=== PATIENT | male | born 1950 | race Caucasian/White ===

== ENCOUNTER → 2016-06-14 | Outpatient (CLI) | payer MEDICARE | END | disposition home or self-care (01) | LOC: GMAL 11:23 | PROVIDERS: ATTEND Family Medicine | DX: Z12.5 Encounter for screening for malignant neoplasm of prostate (principal); D51.3 Other dietary vitamin B12 deficiency anemia; E55.9 Vitamin D deficiency, unspecified; D64.9 Anemia, unspecified | CPT/HCPCS: 82306; 82607; 82728; 83540; 83550; G0103 ==

== ENCOUNTER → 2017-06-26 | Outpatient (CLI) | payer MEDICARE | LOC: GMAL 10:24 | PROVIDERS: ATTEND Family Medicine | DX: D51.3 Other dietary vitamin B12 deficiency anemia (principal); D53.9 Nutritional anemia, unspecified; E55.9 Vitamin D deficiency, unspecified; Z12.5 Encounter for screening for malignant neoplasm of prostate | CPT/HCPCS: 82306; 82607; 82728; 82746; 83540; 83550; G0103 ==

== ENCOUNTER 2017-08-13 20:17 | Emergency (ER) | payer MEDICARE, OTHER ==
[2017-08-13 20:35] VITALS: TEMP 99.6
[2017-08-13] MEDS ORDERED: ALUM & MAG HYDROX-SIMETHICONE 30 ML, LIDOCAINE VISCOUS 2% 15 ML PO ONE ×2 (20:36)
--- NOTE | 2017-08-13 20:39 | ED.PDOC ---
History of Present Illness - General Chief Complaint: Abdominal Pain Stated Complaint: upper abdominal pain Time Seen by Provider: 08/13/17 20:35 Information Source: patient Exam Limitations: no limitations - History of Present Illness Initial Comments: Patient comes in with sudden 10/10 sharp epigastric abdominal pain that started yesterday at 7 pm. she states the pain was associated with some dry heaving and nausea and felt like a hot poker was the middle of his abdomen. He had a similar episode that lasted only a couple of hours back in May after he was started on a new diabetes medication. However, he has not had any problems since. He did have a normal bowel movement today without blood or diarrhea. He 's had no fever but some chills last night. He denies any cough or cold symptoms. He has no chest pain or shortness of breath. Patient normally does not have reflux and he denies any having abdominal distention. He has not had recent trauma, change in activity, or travel. Nothing makes the pain better and nothing seems to make it worse. Abdominal Pain Onset Location: epigastric Pain Radiation: no radiation Quality: severe, burning, stabbing Timing/Duration: 7-24 hours Improving Factors: nothing Worsening Factors: nothing Associated Symptoms: nausea/vomiting Review of Systems - Review of Systems Constitutional: States: chills. Denies: fever EENTM: States: no symptoms reported. Denies: ear pain, nose pain, nose congestion, throat pain Respiratory: States: no symptoms reported. Denies: cough, orthopnea, short of breath, wheezing Cardiology: States: no symptoms reported. Denies: chest pain, palpitations, syncope Genitourinary: States: see HPI Musculoskeletal: States: no symptoms reported Skin: States: no symptoms reported Neurological: States: no symptoms reported Past Medical History (General) - Patient Medical History Hx Seizures: No Hx Stroke: No Hx Dementia: No Hx Asthma: No Hx of COPD: Yes Hx Cardiac Disorders: No Hx Congestive Heart Failure: No Hx Pacemaker: No Hx Hypertension: Yes Hx Thyroid Disease: No Hx Diabetes: Yes - NIDDN Hx Gastroesophageal Reflux: No Hx Renal Disease: No Hx of HIV: No Hx MRSA: No Surgical History: no surgical history - Vaccination History Hx Influenza Vaccination: Yes - Social History Hx Tobacco Use: Yes - 1 ppd - Triage Comment ED Triage Comment: intermittant burning to epigastric area. Family Medical History - Family History Mother Family History: Unknown Hx Family Cancer: Yes Physical Exam - Physical Exam General Appearance: Agitated, Obvious distress Eyes, Ears, Nose, Throat Exam: PERRL/EOMI, normal ENT inspection, TMs normal, pharynx normal Neck: non-tender, full range of motion, supple, normal inspection Respiratory: chest non-tender, lungs clear, normal breath sounds, no respiratory distress Cardiovascular/Chest: normal peripheral pulses, regular rate, rhythm, no edema, no gallop, no JVD, no murmur Peripheral Pulses: No deficit Gastrointestinal/Abdominal: soft, other - to palpation epigastrium with some voluntary guarding no rebound and no distention. Hypoactive bowel sounds in all 4 quadrants no masses Back Exam: no CVA tenderness Neurologic: alert, oriented x 3 Skin Exam: normal color Progress - Progress Progress: 08/13/17 21:29 Discussed results with patient and . Gallbladder wall thickening without signs of acute cholecystitis. Patient has no fever, normal WBC and no dilation noted of CBD. Patient understands appears to be billiary collic and further study and intervention may be needed including U/S and possible HIDA scan. 08/13/17 22:52 after IV Toradol and fluid pain is resolved. - Results/Orders Results/Orders: Patient Name: CRISTIAN CARRANZA Gender: Male Date of : 1950 Referring Physician: STEVE MAURICE Organization: [facility] Accession Number: [id number] Requested Date: August 13, 2017 20:36 Report Status: Final Requested Procedure: 1 Procedure Description: Abdoment/Pelvis w/o Contrast Modality: CT Findings Reporting MD: Josh Mirza Fellow MD: Not available Dictation Time: Point Of Care Technician: Not available In [employer] Date: EXAM DESCRIPTION: CT ABDOMEN AND PELVIS WITHOUT CONTRAST CLINICAL HISTORY: pain at epigastric area COMPARISON: None Available. TECHNIQUE: CT of the abdomen and pelvis without IV contrast. Evaluation of the solid organs and vasculature is suboptimal due to lack of IV contrast. DLP: 558.99 mGy-cm FINDINGS: Lung Bases: The visualized lung bases are clear. Bones: No destructive bone lesions identified. Degenerative change of the spine. Abdomen: Liver: The liver has normal size and density. Gallbladder: Wall thickening of the gallbladder without definite calcified gallstones identified. Spleen, Pancreas, and Adrenal Glands: The spleen, pancreas, and adrenal glands are unremarkable. Kidneys: The kidneys have normal size and contour without evidence of hydronephrosis. No obstructing ureteral calculi. Nonspecific bilateral perinephric fat stranding. Vasculature: Aortoiliac atherosclerosis. IVC is unremarkable. Stomach: The stomach and duodenum have normal course. Small duodenal diverticulum. Other: No free intraperitoneal air. No free fluid or lymphadenopathy. Pelvis: Bladder: Thickening of the urinary bladder. Bowel: No dilated loops of large or small bowel. Appendix: Normal appendix. Pelvis: Enlarged prostate. [facility] [address] [place] [address], [address] [place], [place] T [phone] F [phone] [email or web address] - Report exported on Aug 13, 2017 21:25:08 [id number] - Page 2 of 2 IMPRESSION: 1. Wall thickening of the gallbladder without gallstones identified. Right upper quadrant ultrasound may be helpful. 2. Wall thickening of the urinary bladder with enlargement of the prostate. This may be related to bladder outlet obstruction however other etiology not excluded. This exam was performed according to our departmental dose-optimization program, which includes automated exposure control, adjustment of the mA and/or kV according to patient size and/or use of iterative reconstruction technique. Departure - Departure Clinical Impression: Abdominal pain Qualifiers: Abdominal location: epigastric Qualified Code(s): R10.13 - Epigastric pain Disposition: Discharge to Home or Self Care Condition: Good Departure Forms: ED Discharge - Pt. Copy, Patient Portal Self Enrollment Instructions: DI for Abdominal Pain-Adult Diet: low fat, low cholesterol Referrals: Matthew Augustin III, MD [Primary Care Provider] - 1-2 Weeks Home Medications: Ambulatory Orders Ferrous Gluconate [Iron] 27 mg PO 08/13/17 Folic Acid 1 mg PO 08/13/17 Gabapentin 400 mg PO 08/13/17 Lisinopril 2.5 mg PO 08/13/17 Metoprolol Tartrate 25 mg PO 08/13/17 Omeprazole 20 mg PO 08/13/17 Simvastatin 80 mg PO 08/13/17 Sitagliptin-Metformin HCl [Janumet 50-1000 mg] 08/13/17 Tamsulosin HCl 0.4 mg PO 08/13/17 Terazosin HCl 5 mg PO 08/13/17 Trazodone HCl 50 mg PO 08/13/17 Venlafaxine HCl 75 mg PO 08/13/17 Additional Instructions: patient appears to have biliary colic with some thickening of the gallbladder wall. However, white blood cell count was normal and patient is afebrile. Pain was resolved with IV fluid and IV Toradol. Patient was informed upon results that he should follow-up with his PCP in 3-4 days to arrange ultrasound decide if further workup is necessary. Return to ER for worsening of pain, intractable emesis, even her greater than 100.5.
[2017-08-13] MEDS ORDERED: ALUM & MAG HYDROX-SIMETHICONE 30 ML UD ONE (20:41)
[2017-08-13] MEDS ORDERED: LIDOCAINE HCL 2% (MOUTH-THROAT) 15 ML UD ONE (20:41)
[2017-08-13] MEDS ORDERED: KETOROLAC TROMETHAMINE INJ 30 MG/ML VIAL IV ONE (21:19)
[2017-08-13] MEDS ORDERED: SODIUM CHLORIDE 0.9% 1000ML 1,000 ML IVS PRN (21:19)
--- NOTE | 2017-08-13 21:20 | CT ---
EXAM DESCRIPTION: CT ABDOMEN AND PELVIS WITHOUT CONTRAST CLINICAL HISTORY: pain at epigastric area COMPARISON: None Available. TECHNIQUE: CT of the abdomen and pelvis without IV contrast. Evaluation of the solid organs and vasculature is suboptimal due to lack of IV contrast. DLP: 558.99 mGy-cm FINDINGS: Lung Bases: The visualized lung bases are clear. Bones: No destructive bone lesions identified. Degenerative change of the spine. Abdomen: Liver: The liver has normal size and density. Gallbladder: Wall thickening of the gallbladder without definite calcified gallstones identified. Spleen, Pancreas, and Adrenal Glands: The spleen, pancreas, and adrenal glands are unremarkable. Kidneys: The kidneys have normal size and contour without evidence of hydronephrosis. No obstructing ureteral calculi. Nonspecific bilateral perinephric fat stranding. Vasculature: Aortoiliac atherosclerosis. IVC is unremarkable. Stomach: The stomach and duodenum have normal course. Small duodenal diverticulum. Other: No free intraperitoneal air. No free fluid or lymphadenopathy. Pelvis: Bladder: Thickening of the urinary bladder. Bowel: No dilated loops of large or small bowel. Appendix: Normal appendix. Pelvis: Enlarged prostate. IMPRESSION: 1. Wall thickening of the gallbladder without gallstones identified. Right upper quadrant ultrasound may be helpful. 2. Wall thickening of the urinary bladder with enlargement of the prostate. This may be related to bladder outlet obstruction however other etiology not excluded. This exam was performed according to our departmental dose-optimization program, which includes automated exposure control, adjustment of the mA and/or kV according to patient size and/or use of iterative reconstruction technique. Electronically signed by: Josh Mirza 08/13/2017 9:19 PM CDT
[2017-08-13 23:10] VITALS: O2SAT 99
[2017-08-13 23:11] VITALS: BP 140/67
== END 2017-08-13 23:11 | disposition home or self-care (01) ==
LOC: ER 20:17
DX: R10.13 Epigastric pain (principal); J44.9 Chronic obstructive pulmonary disease, unspecified; E11.9 Type 2 diabetes mellitus without complications; I10 Essential (primary) hypertension; Z87.891 Personal history of nicotine dependence
CPT/HCPCS: 36415; 74176; 80053; 82150; 83690; 85025; J1885; J7030

== ENCOUNTER → 2017-09-05 | Outpatient (CLI) | payer OTHER, MEDICARE ==
--- NOTE | 2017-09-05 10:04 | US ---
EXAM DESCRIPTION: Abdomen,Limited CLINICAL HISTORY: PAIN COMPARISON: None Available. TECHNIQUE: Right upper quadrant ultrasound FINDINGS: Pancreas: Visualized portions of the pancreas are unremarkable. Bowel gas obscures some areas. Aorta/inferior vena cava: No aortic aneurysm. Normal inferior vena cava. Liver: The liver is homogeneous in texture with normal echogenicity of the hepatic parenchyma. No focal liver lesion or intrahepatic bile duct dilatation. No liver surface irregularity. Normal appearance of the portal vein and hepatic veins. Gallbladder: Gallbladder appears contracted and slightly thick-walled but no intraluminal stones are seen. Patient was apparently postprandial for the exam. Common bile duct: Normal caliber measuring 5.0 mm. Right kidney: Renal length is 10.0 cm. Normal cortical echogenicity. Cortical thickness is normal. No hydronephrosis is seen. No renal mass or shadowing calculus. IMPRESSION: No diagnostic abnormality is identified on sonographic examination of the right upper quadrant. Electronically signed by: Bruce Wagner MD 09/05/2017 10:03 AM CDT
== END ==
LOC: US 09:00
PROVIDERS: ATTEND Family Medicine
DX: R10.9 Unspecified abdominal pain (principal)

== ENCOUNTER → 2018-01-02 | Outpatient (CLI) | payer OTHER ==
--- NOTE | 2018-01-02 09:05 | CT ---
Procedure: CT LUNG SCREENING Exam Date: 01/02/2018 Ordering Provider: Ashkan Heller Clinical Indication: screen for lung malignancy Comparison: None Technique: Using a multislice scanner, sequential axial imaging was obtained in the thorax from the level of the thoracic inlet through the lung bases without IV contrast. A low dose protocol was utilized. 2D sagittal and coronal reconstructed images were obtained. This exam was performed according to our departmental dose optimization program which includes use of automated exposure control, adjustment of the mA and/or kV according to patient size and/or use of iterative reconstruction technique. FINDINGS: Lungs and large airways: Mild emphysematous changes. Subcentimeter calcified granuloma in the left lower lobe. No suspicious lung nodules. No focal lung consolidation. Minimal atelectasis/scarring in the lingula. Pleura: No pleural effusion. No pneumothorax. Mediastinum and debi: No lymphadenopathy by CT size criteria. Calcified mediastinal and left hilar lymph nodes. Heart and great vessels: The heart is not enlarged. No pericardial effusion. No aortic aneurysm. Aortic Calcification. Coronary artery calcifications. Chest wall, lower neck, axillae: No axillary lymphadenopathy. Upper abdomen: Nonacute Bones: Nonacute IMPRESSION: 1. No suspicious lung nodules. Lung RADS category 1, negative. Continue annual screening with low-dose CT. Electronically signed by: Mina Lezama MD 01/02/2018 9:04 AM CDT
== END ==
LOC: CT 08:00
PROVIDERS: ATTEND Family Medicine
DX: Z12.2 Encounter for screening for malignant neoplasm of respiratory organs (principal)

== ENCOUNTER → 2018-04-13 | Outpatient (CLI) | payer OTHER ==
--- NOTE | 2018-04-13 17:04 | RAD ---
EXAM DESCRIPTION: Lumbar Spine 5 Views CLINICAL HISTORY: M42.16 COMPARISON: None Available. TECHNIQUE: AP/lateral/ coned-down lateral/both obliques FINDINGS: Five view lumbar spine shows leftward curvature of the lumbar spine with multilevel disc degeneration and spurring. There is no vertebral anomaly. The intervertebral disc space height is abnormally decreased at the L2-3, L4-5 and L5-S1 levels consistent with advanced disc degeneration. Spurring is prominent anteriorly at these levels as well as L3-4. No pars fracture is seen on the oblique images. Facet degenerative spurring is seen right more than left at the L3-4 through L5-S1 levels. IMPRESSION: Degenerative changes as described. Electronically signed by: Bruce Wagner MD 04/13/2018 5:[address] [facility]
== END ==
LOC: LAB.O 15:44
PROVIDERS: ATTEND Family Medicine
DX: M54.5 Low back pain (principal); E87.5 Hyperkalemia

== ENCOUNTER → 2018-05-21 | Outpatient (CLI) | payer OTHER | LOC: LAB.O 13:16 | PROVIDERS: ATTEND Family Medicine | DX: E87.5 Hyperkalemia (principal) ==

== ENCOUNTER → 2018-10-24 | Outpatient (CLI) | payer OTHER | LOC: LAB.O 15:05 | PROVIDERS: ATTEND Family Medicine | DX: E87.5 Hyperkalemia (principal); M42.16 Adult osteochondrosis of spine, lumbar region; D64.9 Anemia, unspecified; I25.119 Atherosclerotic heart disease of native coronary artery with unspecified angina pectoris; N40.1 Benign prostatic hyperplasia with lower urinary tract symptoms; J44.9 Chronic obstructive pulmonary disease, unspecified; I10 Essential (primary) hypertension; K21.9 Gastro-esophageal reflux disease without esophagitis; K51.90 Ulcerative colitis, unspecified, without complications; F41.9 Anxiety disorder, unspecified; M54.2 Cervicalgia; R69 Illness, unspecified; E78.5 Hyperlipidemia, unspecified; F33.9 Major depressive disorder, recurrent, unspecified; M51.86 Other intervertebral disc disorders, lumbar region; E11.42 Type 2 diabetes mellitus with diabetic polyneuropathy; M19.90 Unspecified osteoarthritis, unspecified site; G47.9 Sleep disorder, unspecified; Z72.0 Tobacco use ==

== ENCOUNTER → 2019-10-28 | Outpatient (CLI) | payer OTHER, MEDICARE ==
--- NOTE | 2019-10-29 08:42 | MRI ---
EXAM DESCRIPTION: Brain w/o Contrast: MRI. CLINICAL HISTORY: PRIMARY TREMORS AND MEMORY PROBLEMS COMPARISON: None. TECHNIQUE: Multiplanar, high-field MRI unit, multiple diffusion sequences, multiple conventional sequences without contrast. FINDINGS: Multifocal bilateral FLAIR and T2-weighted signal in the periventricular white matter and gonzalez/sub-cortical white matter junctions of the cerebral hemispheres. Some of the lesions in the periventricular white matter are confluent. Relative sparing of the temporal lobes. Largest asymmetric lesions are in the subcortical right frontal lobe above the ventricles, and the left frontal lobe periventricular white matter inferior to the left frontal horn. No hemorrhage, no cerebral edema, no midline shift.. Normal signal in the bilateral basal ganglia. Normal signal in the cerebellar hemispheres. Focal hyperintense T1 and T2 signal in the inferior midline cyndie extending inferiorly toward the medulla. No hemorrhage, no cerebral edema, no mass-effect. Concordance of the diffusion and non-diffusion sequences with no diffusion restriction. Cortical sulci, ventricles, and other CSF spaces, and the subdural spaces are normally configured for patient's age. No effacement or displacement. No midline shift. No extra-axial hemorrhage. Normal flow signal void in the major vessels of the [place], and the venous sinuses. IACs are symmetric bilaterally. Normal signal in the bilateral mastoid air cells. No mass effect in the bilateral cerebellopontine angles. Pituitary gland occupies all of the sella. Base of the cerebellar tonsils is above the foramen magnum. Paranasal sinuses are unremarkable.. The bony calvarium is intact. IMPRESSION: 1. Bilateral periventricular white matter and subcortical white matter lesions most likely related to cerebral microvascular disease and aging. No hemorrhage, no mass effect, no diffusion restriction. Small lesion in the inferior midline cyndie. 2. Normal noncontrast MRI diffusion elsewhere in the brain and brainstem. Electronically signed by: Wan Keating MD 10/29/2019 8:41 AM CDT
== END ==
LOC: MRI 09:43
PROVIDERS: ATTEND Psychiatry & Neurology Neurology
DX: R25.1 Tremor, unspecified (principal); R41.3 Other amnesia; R90.82 White matter disease, unspecified; G93.9 Disorder of brain, unspecified

== ENCOUNTER 2020-03-04 15:38 | Emergency (ER) | payer OTHER, MEDICARE ==
--- NOTE | 2020-03-04 16:02 | ED.PDOC ---
History of Present Illness - General Time Seen by Provider: 03/04/20 15:59 Source: patient, RN notes reviewed, Vital Signs reviewed Additional Information: 71-year-old male patient, with history hypertension diabetes hyperlipidemia, presents to the ER because of generalized weakness shortness of breath fatigue and not feeling well. Patient had blood work done yesterday and then he was called from the [place] this office saying that he needed to go to the hospital because he is blood work was low. Arrive with blood work from yesterday does show evidence of thrombocytopenia neutropenia and anemia, this patient does not have any history of any bone marrow disease, denies any chills denies any fever has not been outside of his house since the pandemic. Not exposed to any sick contact, patient is a smoker no history of liver disease no history of alcohol. Patient losing weight for the past months, I reviewed the PA about his change in weight, but nothing was done - History of Present Illness Timing/Duration: other - chronic Improving Factors: nothing Worsening Factors: nothing Associated Symptoms: denies symptoms Allergies/Adverse Reactions: Allergies Doxycycline Allergy (Verified 08/13/17 20:48) Home Medications: Ambulatory Orders Ferrous Gluconate [Iron] 27 mg PO DAILY 08/13/17 Folic Acid 1 mg PO DAILY 08/13/17 Gabapentin 400 mg PO BEDTIME 08/13/17 Metoprolol Tartrate 25 mg PO DAILY 08/13/17 Omeprazole 20 mg PO DAILY 08/13/17 Simvastatin 40 mg PO BEDTIME 08/13/17 Sitagliptin-Metformin HCl [Janumet 50-1000 mg] 08/13/17 Tamsulosin HCl 0.8 mg PO BEDTIME 08/13/17 Terazosin HCl 5 mg PO DAILY 08/13/17 Trazodone HCl [Trazodone Hydrochloride] 50 mg PO BEDTIME 08/13/17 Venlafaxine HCl 150 mg PO BID 08/13/17 Aspirin [Aspirin Adult Low Dose] 81 mg PO DAILY 03/04/20 Review of Systems - Review of Systems Constitutional: States: weakness EENTM: States: no symptoms reported Respiratory: States: short of breath Cardiology: States: no symptoms reported Gastrointestinal/Abdominal: States: no symptoms reported Genitourinary: States: no symptoms reported Musculoskeletal: States: no symptoms reported Skin: States: no symptoms reported Neurological: States: no symptoms reported Endocrine: States: no symptoms reported Hematologic/Lymphatic: States: no symptoms reported Past Medical History (General) - Patient Medical History Hx Seizures: No Hx Stroke: No Hx Dementia: No Hx Asthma: No Hx of COPD: Yes Hx Cardiac Disorders: No Hx Congestive Heart Failure: No Hx Pacemaker: No Hx Hypertension: Yes Hx Thyroid Disease: No Hx Diabetes: Yes - NIDDN Hx Gastroesophageal Reflux: No Hx Renal Disease: No Hx of HIV: No Hx MRSA: No - Vaccination History Hx Influenza Vaccination: Yes - Social History Hx Tobacco Use: Yes - 1 ppd Family Medical History - Family History Mother Family History: Unknown Hx Family Cancer: Yes Physical Exam - Physical Exam General Appearance: Alert, Other - chronically ill Eye Exam: bilateral normal Ears, Nose, Throat: hearing grossly normal Neck: non-tender, full range of motion, supple Respiratory: chest non-tender, lungs clear, normal breath sounds, no respiratory distress, no accessory muscle use Cardiovascular/Chest: normal peripheral pulses, regular rate, rhythm, no edema, no gallop, no JVD, no murmur Peripheral Pulses: radial,right: 1+, radial,left: 1+ Gastrointestinal/Abdominal: normal bowel sounds, non tender, soft, no org anomegaly, no pulsatile mass Extremity: normal range of motion, non-tender, normal inspection, no pedal edema, no calf tenderness 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 Patient work done yesterday and he was called to go to the ER today because of low platelets. Patient does not have a history of coronary disease. He smokes. stated that patient has been losing weight for the past couple of months, unwanted weight loss. I repeated operations blood work to find out all his blood lines low including white blood cell count on the hemoglobin on the platelets. Has evidence of hyponatremia without evidence of hyperkalemia or evidence of renal failure. Patient needs to be evaluated a higher level care facility for evaluation of bone marrow disease or myelodysplatic syndrome . This patient might need bone marrow biopsy. And this patient may need to be transferred to high-level care facility since we do not have the services that this patient may need to find and to treat patient diagnosis 03/04/20 16:44 03/04/20 16:46 Departure - Departure Clinical Impression: Generally unwell, Anemia, Thrombocytopenia, Leukopenia Disposition: Transfer to Hospital Referrals: Matthew Augustin III, MD [Primary Care Provider] - 1-2 Weeks Home Medications: Ambulatory Orders Ferrous Gluconate [Iron] 27 mg PO DAILY 08/13/17 Folic Acid 1 mg PO DAILY 08/13/17 Gabapentin 400 mg PO BEDTIME 08/13/17 Metoprolol Tartrate 25 mg PO DAILY 08/13/17 Omeprazole 20 mg PO DAILY 08/13/17 Simvastatin 40 mg PO BEDTIME 08/13/17 Sitagliptin-Metformin HCl [Janumet 50-1000 mg] 08/13/17 Tamsulosin HCl 0.8 mg PO BEDTIME 08/13/17 Terazosin HCl 5 mg PO DAILY 08/13/17 Trazodone HCl [Trazodone Hydrochloride] 50 mg PO BEDTIME 08/13/17 Venlafaxine HCl 150 mg PO BID 08/13/17 Aspirin [Aspirin Adult Low Dose] 81 mg PO DAILY 03/04/20 Transfer to Outside Facility - Transfer Information Decision to Transfer Date: 03/04/20 Decision to Transfer Time: 16:49 Reason for Transfer: specialized care not available
[2020-03-04 16:15] VITALS: TEMP 98.6
--- NOTE | 2020-03-04 16:15 | RAD ---
EXAM DESCRIPTION: Chest,1 View CLINICAL HISTORY: 70 years Male, sob COMPARISON: None. TECHNIQUE: Single view radiograph of the chest. IMPRESSION: Normal size cardiac silhouette. Scattered basilar atelectasis or scarring. No pleural effusion or pneumothorax. Thoracic spondylosis. Electronically signed by: Danial Cleveland MD 03/04/2020 4:14 PM [facility]
[2020-03-04] MEDS ORDERED: NICOTINE PATCH 21 MG TD ONE (17:25)
[2020-03-04 17:46] VITALS: BP 156/93; O2SAT 96
== END 2020-03-04 17:46 | disposition short-term general hospital (02) ==
LOC: ER 15:38
DX: D64.9 Anemia, unspecified (principal); D69.6 Thrombocytopenia, unspecified; D72.819 Decreased white blood cell count, unspecified; R06.02 Shortness of breath; R53.1 Weakness; I51.9 Heart disease, unspecified; I10 Essential (primary) hypertension; E11.9 Type 2 diabetes mellitus without complications; E78.5 Hyperlipidemia, unspecified; F17.200 Nicotine dependence, unspecified, uncomplicated; J44.9 Chronic obstructive pulmonary disease, unspecified; Z87.19 Personal history of other diseases of the digestive system; Z88.1 Allergy status to other antibiotic agents; Z79.899 Other long term (current) drug therapy; Z79.82 Long term (current) use of aspirin; Z79.84 Long term (current) use of oral hypoglycemic drugs

== ENCOUNTER 2020-04-06 19:21 | Emergency (ER) | payer OTHER, MEDICARE ==
--- NOTE | 2020-04-06 19:35 | ED.PDOC ---
History of Present Illness - General Time Seen by Provider: 04/06/20 19:31 Source: patient Exam Limitations: no limitations - History of Present Illness Initial Comments: PATIENT HAD A BLOOD GLUCOSE BELOW 20 AT HOME THIS EVENING AND FELT POORLY, HE MISSED BOTH LUNCH AND EVENING MEAL. PATIENT HAD SUGAR AT HOME AND IN ROUTE TO HOSPITAL AND IS MORE ALERT AND STATES HE FEELS BETTER NOW. HE USES BOTH INSULIN AND METFORMIN FOR HIS DIABETES. Timing/Duration: momentarily Severity: severe Improving Factors: eating Worsening Factors: nothing Associated Symptoms: diaphoresis, weakness Allergies/Adverse Reactions: Allergies Doxycycline Allergy (Verified 04/06/20 20:00) Home Medications: Ambulatory Orders Metoprolol Tartrate 25 mg PO DAILY 08/13/17 Tamsulosin HCl 0.8 mg PO BEDTIME 08/13/17 Venlafaxine HCl 150 mg PO BID 08/13/17 Alprazolam 0.5 mg PO TID 04/06/20 Amlodipine Besylate 5 mg PO DAILY 04/06/20 Cefuroxime Axetil [Ceftin] 500 mg PO BID 04/06/20 Cyanocobalamin [B-12] 1,000 mcg PO DAILY 04/06/20 Cyclosporine Modified (For Tito [Cyclosporine Modified] 25 mg PO DAILY 04/06/20 Cyclosporine Modified (For Tito [Cyclosporine Modified] 100 mg PO DAILY 04/06/20 Fluconazole 200 mg PO DAILY 04/06/20 Insulin Regular (Human) [Humulin R] 1 unit SC PRN 04/06/20 Metformin HCl [Fortamet] 1,000 mg PO BID 04/06/20 Pravastatin Sodium 20 mg PO DAILY 04/06/20 Primidone 50 mg PO DAILY 04/06/20 Temazepam [Restoril] 15 mg PO BEDTIME 04/06/20 tiZANidine [Zanaflex] 4 mg PO DAILY 04/06/20 Review of Systems - Review of Systems Constitutional: States: see HPI, weakness EENTM: States: no symptoms reported Respiratory: States: no symptoms reported Cardiology: States: no symptoms reported Gastrointestinal/Abdominal: States: no symptoms reported Genitourinary: States: no symptoms reported Musculoskeletal: States: no symptoms reported Skin: States: see HPI Neurological: States: weakness Endocrine: States: excessive sweating Hematologic/Lymphatic: States: no symptoms reported Past Medical History (General) - Patient Medical History Hx Seizures: No Hx Stroke: No Hx Dementia: No Hx Asthma: No Hx of COPD: Yes Hx Cardiac Disorders: No Hx Congestive Heart Failure: No Hx Pacemaker: No Hx Hypertension: Yes Hx Thyroid Disease: No Hx Diabetes: Yes - NIDDN Hx Gastroesophageal Reflux: No Hx Renal Disease: No Hx of HIV: No Hx MRSA: No - Vaccination History Hx Influenza Vaccination: Yes Hx Pneumococcal Vaccination: Yes - Social History Hx Tobacco Use: Yes - 1 ppd Family Medical History - Family History Mother Family History: Unknown Hx Family Cancer: Yes Physical Exam - Physical Exam General Appearance: Alert, Comfortable, Frail Neck: non-tender, full range of motion, supple Respiratory: chest non-tender, lungs clear, normal breath sounds, no respiratory distress Cardiovascular/Chest: normal peripheral pulses, regular rate, rhythm, no edema, no gallop Gastrointestinal/Abdominal: normal bowel sounds, non tender, soft, no organomegaly, no pulsatile mass Back Exam: normal inspection Neurologic: alert, normal mood/affect, oriented x 3 Skin Exam: normal color, warm/dry Departure - Departure Clinical Impression: Hypoglycemia Time of Disposition: 20:19 Disposition: Discharge to Home or Self Care Condition: Good Instructions: Low Blood Sugar in People With Diabetes Referrals: Matthew Augustin III, MD [Primary Care Provider] - 1-2 Weeks Home Medications: Ambulatory Orders Metoprolol Tartrate 25 mg PO DAILY 08/13/17 Tamsulosin HCl 0.8 mg PO BEDTIME 08/13/17 Venlafaxine HCl 150 mg PO BID 08/13/17 Alprazolam 0.5 mg PO TID 04/06/20 Amlodipine Besylate 5 mg PO DAILY 04/06/20 Cefuroxime Axetil [Ceftin] 500 mg PO BID 04/06/20 Cyanocobalamin [B-12] 1,000 mcg PO DAILY 04/06/20 Cyclosporine Modified (For Tito [Cyclosporine Modified] 25 mg PO DAILY 04/06/20 Cyclosporine Modified (For Tito [Cyclosporine Modified] 100 mg PO DAILY 04/06/20 Fluconazole 200 mg PO DAILY 04/06/20 Insulin Regular (Human) [Humulin R] 1 unit SC PRN 04/06/20 Metformin HCl [Fortamet] 1,000 mg PO BID 04/06/20 Pravastatin Sodium 20 mg PO DAILY 04/06/20 Primidone 50 mg PO DAILY 04/06/20 Temazepam [Restoril] 15 mg PO BEDTIME 04/06/20 tiZANidine [Zanaflex] 4 mg PO DAILY 04/06/20 Additional Instructions: PLEASE DON'T SKIP MEALS.
[2020-04-06 20:28] VITALS: TEMP 97.6
[2020-04-06 21:01] VITALS: BP 141/77; O2SAT 93
== END 2020-04-06 20:38 | disposition home or self-care (01) ==
LOC: ER 19:21
DX: E11.649 Type 2 diabetes mellitus with hypoglycemia without coma (principal); J44.9 Chronic obstructive pulmonary disease, unspecified; I10 Essential (primary) hypertension; Z79.4 Long term (current) use of insulin; Z79.899 Other long term (current) drug therapy; Z87.891 Personal history of nicotine dependence; Z88.1 Allergy status to other antibiotic agents